=== PATIENT | female | born 1970 | race American Indian/Alaskan Native ===

== ENCOUNTER 2017-05-04 16:29 | Emergency (ER) | payer MEDICAID ==
[2017-05-04 17:41] VITALS: BP 153/89
[2017-05-04 19:11] LABS: Basophils % (Auto) 0.3 % (0.0-1.8); Eosinophils % (Auto) 0.5 % (0.0-4.3); Hematocrit 43.5 % (30.3-42.9); Hemoglobin 14.2 gm/dl (10.1-14.3); Mean Corpuscular HGB Conc 33 % (30-34); Mean Corpuscular Hemoglobin 31 pg (28-32); Mean Corpuscular Volume 94 fl (79-97); Red Blood Count 4.63 M/mm3 (3.65-5.03); Red Cell Distribution Width 14.4 % (13.2-15.2); White Blood Count 6.3 K/mm3 (4.5-11.0)
[2017-05-04 19:14] LABS: Platelet Count 160 K/mm3 (140-440)
[2017-05-04 19:57] LABS: Bilirubin,Urine NEG (Negative); Blood,Urine MOD (Negative); Ketones,Urine NEG (Negative); Leukocyte Esterase,Urine NEG (Negative); Mucus,Urine 2+ /HPF; Nitrite,Urine NEG (Negative); Protein,Urine <15 mg/dL mg/dL (Negative); Urobilinogen,Urine < 2.0 mg/dL (<2.0)
== END 2017-05-04 22:30 | disposition left against medical advice (07) ==
LOC: ED 16:29
DX: M54.5 Low back pain (principal); Z53.21 Procedure and treatment not carried out due to patient leaving prior to being seen by health care provider
CPT/HCPCS: 36415; 81001; 81025; 85025

== ENCOUNTER 2020-03-01 13:26 | Emergency (ER) | payer MEDICARE ==
[2020-03-01] MEDS ORDERED: HYOSCYAMINE SUBL 0.125 MG TAB SL ONE (14:33)
[2020-03-01] MEDS ORDERED: diphenhydrAMINE 50 MG/ML VIAL IV ONE (14:33)
[2020-03-01] MEDS ORDERED: ALUM-MAG HYDROXIDE-SIMETHICONE 200-200-20MG/5ML ORAL LIQD 30 ML PO ONE (14:33)
[2020-03-01] MEDS ORDERED: LIDOCAINE VISCOUS 2% 15 ML ORAL LIQD PO ONE (14:33)
[2020-03-01] MEDS ORDERED: METOCLOPRAMIDE 10 MG/2 ML INJ IV ONE (14:33)
[2020-03-01] MEDS ORDERED: SODIUM CHLORIDE 0.9% 1000 ML 1,000 ML IV ONE (14:33)
[2020-03-01 15:24] LABS: Bilirubin,Urine NEG (Negative); Blood,Urine SM (Negative); Color,Urine Yellow (Yellow); Mucus,Urine FEW /HPF; Protein,Urine <15 mg/dL mg/dL (Negative); Urobilinogen,Urine < 2.0 mg/dL (<2.0); WBC,Urine < 1.0 /HPF (0.0-6.0)
[2020-03-01 15:36] LABS: Basophils # (Auto) 0.1 K/mm3 (0.0-0.1); Basophils % (Auto) 1.8 % (0.0-1.8); Eosinophils % (Auto) 0.8 % (0.0-4.3); Hematocrit 38.3 % (30.3-42.9); Hemoglobin 12.9 gm/dl (10.1-14.3); Lymphocytes # (Auto) 1.2 K/mm3 (1.2-5.4); Lymphocytes % (Auto) 34.2 % (13.4-35.0); Mean Corpuscular HGB Conc 34 % (30-34); Mean Corpuscular Volume 93 fl (79-97); Monocytes # (Auto) 0.4 K/mm3 (0.0-0.8); Monocytes % (Auto) 11.4 % (0.0-7.3); Platelet Count 165 K/mm3 (140-440); Red Cell Distribution Width 13.5 % (13.2-15.2)
[2020-03-01 15:57] LABS: Alanine Aminotransferase 13 units/L (7-56); Albumin 4.1 g/dL (3.9-5); BUN/Creatinine Ratio 28; Blood Urea Nitrogen 17 mg/dL (7-17); Calcium 9.7 mg/dL (8.4-10.2); Hemolysis Index 64
--- NOTE | 2020-03-01 16:15 | Emergency Department Report ---
ED General Adult HPI - General Chief complaint: Nausea/Vomiting/Diarrhea Stated complaint: BACK PAIN/V/N/HEADACHE/DIARRHEA Time Seen by Provider: 03/01/20 14:23 Source: patient Mode of arrival: Ambulatory Limitations: No Limitations - History of Present Illness Initial comments: Patient is a 50-year-old female presents emergency room with complaints of lower back pain that began a week ago. She states that she is also been having nausea, vomiting, diarrhea over the last 2 weeks. She states that she has a couple episodes of each a day. She states that she also has generalized weakness and fatigue. she states she has been having acid reflux, indigestion, and increased burping. She denies any fever, cough, abdominal pain, shortness of breath, chest pain, dysuria, vaginal discharge or irritation, hematochezia, hematemesis, melena, pus in the stool. Patient reports that she had a UTI a week ago and was placed on Keflex and those symptoms have improved. She has a past medical history of HIV and states that her CD4 count is 314, anemia, hyp ertension, asthma. She states that she does drink alcohol a couple times a week and does smoke. - Related Data Home Medications Medication Instructions Recorded Confirmed Last Taken Atazanavir Sulfate [Reyataz] 300 mg PO DAILY 05/11/14 12/13/15 12/13/15 300 MG Emtricitabin/Tenofovir [TRUVADA 200 mg PO QDAY 05/11/14 12/13/15 12/13/15 200-300 mg] 200 MG Ritonavir [Norvir] 100 mg PO DAILY 05/11/14 12/13/15 12/13/15 100 MG Previous Rx's Medication Instructions Recorded Last Taken Type ARIPiprazole [Abilify TAB] 15 mg PO QHS #30 tablet 05/17/14 12/13/15 Rx 15 MG Benztropine [Cogentin] 1 mg PO QHS #30 tablet 05/17/14 12/13/15 Rx 1 MG [place] Carbonate [Eskalith] 450 mg PO Q12HR #180 capsule 05/17/14 12/13/15 Rx 450 MG Mirtazapine [Remeron 15mg TAB] 15 mg PO QHS #30 tablet 05/17/14 12/13/15 Rx 15 MG Ciprofloxacin HCl [Ciprofloxacin 500 mg PO BID #14 tablet 12/13/15 Unknown Rx TAB] traMADoL [Ultram] 50 mg PO Q6HR PRN #14 tablet 12/13/15 Unknown Rx Ibuprofen [Motrin 800 MG tab] 800 mg PO Q8HR PRN #20 tablet 01/09/20 Unknown Rx cephALEXin [Keflex] 500 mg PO Q6HR #40 capsule 01/09/20 Unknown Rx Acetaminophen [Tylenol] 650 mg PO Q8HR PRN #14 capsule 03/01/20 Unknown Rx Famotidine [Pepcid] 40 mg PO QHS #30 tablet 03/01/20 Unknown Rx Ondansetron [Zofran Odt] 4 mg PO Q8HR PRN #10 tab.rapdis 03/01/20 Unknown Rx Sucralfate [Carafate] 1 gm PO ACHS 7 Days #21 tablet 03/01/20 Unknown Rx methOCARBAMOL [Robaxin TAB] 500 mg PO BID PRN #12 tab 03/01/20 Unknown Rx Allergies Allergy/AdvReac Type Severity Reaction Status Date / Time Sulfa (Sulfonamide Allergy Unknown Unknown Verified 05/10/14 19:14 Antibiotics) ED Review of Systems ROS: Stated complaint: BACK PAIN/V/N/HEADACHE/DIARRHEA Other details as noted in HPI Comment: All other systems reviewed and negative ED Past Medical Hx - Past Medical History Previous Medical History?: Yes Hx Congestive Heart Failure: No Hx Diabetes: No Hx Psychiatric Treatment: Yes Hx Asthma: Yes Hx COPD: No Hx HIV: Yes Additional medical history: Bipolar - Surgical History Past Surgical History?: Yes Hx Appendectomy: Yes (1997) Additional Surgical History: 1997 appendix. hyst - Social History Smoking Status: Never Smoker Substance Use Type: Alcohol - Medications Home Medications: Home Medications Medication Instructions Recorded Confirmed Last Taken Type Atazanavir Sulfate [Reyataz] 300 mg PO DAILY 05/11/14 12/13/15 12/13/15 History 300 MG Emtricitabin/Tenofovir [TRUVADA 200 mg PO QDAY 05/11/14 12/13/15 12/13/15 History 200-300 mg] 200 MG Ritonavir [Norvir] 100 mg PO DAILY 05/11/14 12/13/15 12/13/15 History 100 MG ARIPiprazole [Abilify TAB] 15 mg PO QHS #30 tablet 05/17/14 12/13/15 12/13/15 Rx 15 MG Benztropine [Cogentin] 1 mg PO QHS #30 tablet 05/17/14 12/13/15 12/13/15 Rx 1 MG [place] Carbonate [Eskalith] 450 mg PO Q12HR #180 capsule 05/17/14 12/13/15 12/13/15 Rx 450 MG Mirtazapine [Remeron 15mg TAB] 15 mg PO QHS #30 tablet 05/17/14 12/13/15 12/13/15 Rx 15 MG Ciprofloxacin HCl [Ciprofloxacin 500 mg PO BID #14 tablet 12/13/15 Unknown Rx TAB] traMADoL [Ultram] 50 mg PO Q6HR PRN #14 tablet 12/13/15 Unknown Rx Ibuprofen [Motrin 800 MG tab] 800 mg PO Q8HR PRN #20 tablet 01/09/20 Unknown Rx cephALEXin [Keflex] 500 mg PO Q6HR #40 capsule 01/09/20 Unknown Rx Acetaminophen [Tylenol] 650 mg PO Q8HR PRN #14 capsule 03/01/20 Unknown Rx Famotidine [Pepcid] 40 mg PO QHS #30 tablet 03/01/20 Unknown Rx Ondansetron [Zofran Odt] 4 mg PO Q8HR PRN #10 tab.rapdis 03/01/20 Unknown Rx Sucralfate [Carafate] 1 gm PO ACHS 7 Days #21 tablet 03/01/20 Unknown Rx methOCARBAMOL [Robaxin TAB] 500 mg PO BID PRN #12 tab 03/01/20 Unknown Rx ED Physical Exam - General Limitations: No Limitations General appearance: alert, in no apparent distress - Head Head exam: Present: atraumatic, normocephalic - Eye Eye exam: Present: normal appearance - ENT ENT exam: Present: mucous membranes moist - Respiratory Respiratory exam: Present: normal lung sounds bilaterally. Absent: respiratory distress, wheezes, rales, rhonchi, stridor, chest wall tenderness, accessory muscle use, decreased breath sounds, prolonged expiratory - Cardiovascular Cardiovascular Exam: Present: regular rate, normal rhythm, normal heart sounds. Absent: systolic murmur, diastolic murmur, rubs, gallop - GI/Abdominal GI/Abdominal exam: Present: soft, normal bowel sounds. Absent: distended, tenderness, guarding, rebound, rigid - Neurological Exam Neurological exam: Present: alert, oriented X3 - Psychiatric Psychiatric exam: Present: normal affect, normal mood - Skin Skin exam: Present: warm, dry, intact ED Course Vital Signs 03/01/20 03/01/20 13:43 17:50 Temperature 99.2 F 99.5 F Pulse Rate 65 80 Respiratory 16 20 Rate Blood Pressure 133/83 Blood Pressure 104/61 [Right] O2 Sat by Pulse 100 100 Oximetry ED Medical Decision Making - Lab Data Result diagrams: 03/01/20 14:52 03/01/20 14:52 Labs 03/01/20 03/01/20 03/01/20 14:52 14:52 15:00 WBC 3.5 L RBC 4.10 Hgb 12.9 Hct 38.3 MCV 93 MCH 31 MCHC 34 RDW 13.5 Plt Count 165 Lymph % (Auto) 34.2 Wirt % (Auto) 11.4 H Eos % (Auto) 0.8 Baso % (Auto) 1.8 Lymph # 1.2 Wirt # 0.4 Eos # 0.0 Baso # 0.1 Seg Neutrophils % 51.8 Seg Neutrophils # 1.8 Sodium 139 Potassium 4.8 Chloride 103.1 Carbon Dioxide 25 Anion Gap 16 BUN 17 Creatinine 0.6 Estimated GFR > 60 BUN/Creatinine Ratio 28 Glucose 81 Calcium 9.7 Total Bilirubin < 0.20 AST 31 ALT 13 Alkaline Phosphatase 54 Total Protein 7.9 Albumin 4.1 Albumin/Globulin Ratio 1.1 Lipase 45 Urine Color Yellow Urine Turbidity Clear Urine pH 6.0 Ur Specific [place] 1.018 Urine Protein <15 mg/dl Urine Glucose (UA) Neg Urine Ketones Neg Urine Blood Sm Urine Nitrite Neg Urine Bilirubin Neg Urine Urobilinogen < 2.0 Ur Leukocyte Esterase Neg Urine WBC (Auto) < 1.0 Urine RBC (Auto) 8.0 U Epithel Cells (Auto) 4.0 Urine Mucus Few Vital Signs 03/01/20 03/01/20 13:43 17:50 Temperature 99.2 F 99.5 F Pulse Rate 65 80 Respiratory 16 20 Rate Blood Pressure 133/83 Blood Pressure 104/61 [Right] O2 Sat by Pulse 100 100 Oximetry - Medical Decision Making Patient is a 50-year-old female presents emergency room with complaints of lower back pain that began a week ago. She states that she is also been having nausea, vomiting, diarrhea over the last 2 weeks. She states that she has a couple episodes of each a day. She states that she also has generalized weakness and fatigue. she states she has been having acid reflux, indigestion, and increased burping. She denies any fever, cough, abdominal pain, shortness of breath, chest pain, dysuria, vaginal discharge or irritation, hematochezia, hematemesis, melena, pus in the stool. Patient reports that she had a UTI a week ago and was placed on Keflex and those symptoms have improved. She has a past medical history of HIV and states that her CD4 count is 314, anemia, hypertension, asthma. She states that she does drink alcohol a couple times a week and does smoke. Vitals are normal. Labs are stable. UA without evidence of UTI or dehydration. Patient given medications and her symptoms improved and she was feeling much better ready to go home. Patient was able to tolerate p.o. intake without any difficulty. Patient had no further episodes of vomiting or diarrhea while in the emergency department. Patient states that her acid reflux also completely resolved. Patient given prescription for Tylenol, Robaxin, Carafate, Pepcid, Zofran. Advised patient Please take medication as prescribed. Please increase your water intake. Please follow the diet for acid reflux. Do not drive or operate machinery while taking muscle relaxer due to potential for drowsiness. Use ice pack, heating pad, rest, Epson salt bath. Follow-up with a primary care doctor. Follow-up with your infectious disease doctor. Follow-up with a GI doctor. Return to emergency room for any new or worsening symptoms. - Differential Diagnosis UTI, pyelonephritis, gastroenteritis, viral syndrome, colitis, gastritis Critical care attestation.: If time is entered above; I have spent that time in minutes in the direct care of this critically ill patient, excluding procedure time. ED Disposition Clinical Impression: Nausea vomiting and diarrhea, Generalized weakness Lower back pain Qualifiers: Chronicity: acute Back pain laterality: bilateral Sciatica presence: without sciatica Qualified Code(s): M54.5 - Low back pain Fatigue Qualifiers: Fatigue type: unspecified Qualified Code(s): R53.83 - Other fatigue GERD (gastroesophageal reflux disease) Qualifiers: Esophagitis presence: without esophagitis Qualified Code(s): K21.9 - Gastro- esophageal reflux disease without esophagitis Disposition: DC-01 TO HOME OR SELFCARE Is pt being admited?: No Does the pt Need Aspirin: No Condition: Stable Instructions: Diet for Ulcers and Gastritis (ED), Gastroenteritis (ED), Low Back Strain (ED), Gastroesophageal Reflux Disease (ED) Additional Instructions: Please take medication as prescribed. Please increase your water intake. Please follow the diet for acid reflux. Do not drive or operate machinery while taking muscle relaxer due to potential for drowsiness. Use ice pack, heating pad, rest, Epson salt bath. Follow-up with a primary care doctor. Follow-up wi your infectious disease doctor. Follow-up with a GI doctor. Return to emergency room for any new or worsening symptoms. Prescriptions: Famotidine [Pepcid] 40 mg PO QHS #30 tablet Sucralfate [Carafate] 1 gm PO ACHS 7 Days #21 tablet methOCARBAMOL [Robaxin TAB] 500 mg PO BID PRN #12 tab PRN Reason: pain Acetaminophen [Tylenol] 650 mg PO Q8HR PRN #14 capsule PRN Reason: pain Ondansetron [Zofran Odt] 4 mg PO Q8HR PRN #10 tab.rapdis PRN Reason: Nausea And Vomiting Referrals: CHRISTELLE PALMER MD [Primary Care Provider] - 2-3 Days your, infectious disease doctor [Other] - 2-3 Days [facility] [Provider Group] - 2-3 Days Time of Disposition: 16:26 Print Language: WELSH
[2020-03-01] MEDS ORDERED: CYCLOBENZAPRINE 10 MG TAB PO ONE (16:24)
[2020-03-01] MEDS ORDERED: KETOROLAC 30 MG/1 ML INJ IV ONE (16:24)
[2020-03-01 17:52] VITALS: BP 104/61
== END 2020-03-01 17:55 | disposition home or self-care (01) ==
LOC: ED 13:26
DX: K21.9 Gastro-esophageal reflux disease without esophagitis (principal); R11.2 Nausea with vomiting, unspecified; M54.5 Low back pain; J45.909 Unspecified asthma, uncomplicated; Z79.899 Other long term (current) drug therapy; Z88.2 Allergy status to sulfonamides
CPT/HCPCS: 36415; 80053; 81001; 83690; 85025; 96361; 96374; 96375; 99283; J1200; J1885; J2765; J7030

== ENCOUNTER 2020-04-02 10:14 | Emergency (ER) | payer MEDICARE ==
[2020-04-02 10:52] VITALS: BP 151/95
--- NOTE | 2020-04-02 10:57 | Emergency Department Report ---
Blank Doc - Documentation Documentation: 50-year-old female that presents with flank pain. Has been taking Keflex with no relief and symptoms worsening. This initial assessment/diagnostic orders/clinical plan/treatment(s) is/are subject to change based on patient's health status, clinical progression and re-assessment by fellow clinical providers in the ED. Further treatment and workup at subsequent clinical providers discretion. Patient/guardians urged not to elope from the ED as their condition may be serious if not clinically assessed and managed. Initial orders include: 1- Patient sent to [facility] for further evaluation and treatment 2- UA
[2020-04-02 11:18] LABS: Bacteria,Urine 1+ /HPF (Negative); Bilirubin,Urine NEG (Negative); Blood,Urine MOD (Negative); Color,Urine Yellow (Yellow); Hyaline Casts,Urine 1 /LPF; Mucus,Urine 1+ /HPF; Protein,Urine <15 mg/dL mg/dL (Negative); Urobilinogen,Urine < 2.0 mg/dL (<2.0)
--- NOTE | 2020-04-02 12:16 | Cat Scan Report ---
CT ABDOMEN AND PELVIS WITHOUT CONTRAST INDICATION: flank pain. TECHNIQUE: Axial CT images were obtained through the abdomen and pelvis without IV contrast. All CT scans at [facility] are performed using CT dose reduction for ALARA by means of automated exposure control. COMPARISON: 01/09/2020 FINDINGS: LOWER CHEST: No significant abnormality. LIVER: No significant abnormality. GALLBLADDER: No significant abnormality. BILE DUCTS: No significant abnormality. PANCREAS: No significant abnormality. SPLEEN: No significant abnormality. ADRENALS: No significant abnormality. RIGHT KIDNEY and URETER: No significant abnormality. LEFT KIDNEY and URETER: No significant abnormality. STOMACH and SMALL BOWEL: No significant abnormality. COLON: No significant abnormality. APPENDIX: Not visualized likely surgically absent PERITONEUM: No free fluid. No free air. No fluid collection. LYMPH NODES: No significant adenopathy. AORTA and ARTERIES: No significant abnormality. IVC and VEINS: No significant abnormality. URINARY BLADDER: No significant abnormality. REPRODUCTIVE ORGANS: Surgically absent. ADDITIONAL FINDINGS: None. SKELETAL SYSTEM: No significant abnormality. IMPRESSION: 1. No significant abnormality. 2. No urinary tract calculi or hydronephrosis. Signer Name: Sanjay Sanders MD Signed: 04/02/2020 12:12 PM Workstation Name: [id number]
[2020-04-02] MEDS ORDERED: KETOROLAC 60 MG/2 ML INJ IM ONE (12:36)
[2020-04-02] MEDS ORDERED: CYCLOBENZAPRINE 10 MG TAB PO ONE (12:36)
--- NOTE | 2020-04-02 12:41 | Emergency Department Report ---
ED Back Pain/Injury HPI - General Chief Complaint: Back Pain/Injury Stated Complaint: LOWER BACK PAIN Time Seen by Provider: 04/02/20 10:55 Source: patient Limitations: No Limitations - History of Present Illness Initial Comments: Patient is a 50-year-old female presents emergency room with complaints of left lower back pain that began a couple of days ago. She has associated nausea. She denies any fever, hematochezia, melena, hematemesis, urinary symptoms, dysuria. She denies any fall or injury. She denies any numbness, weakness, bowel or bladder incontinence. Patient states that she had a UTI couple weeks ago and completed a course of Keflex. She states that she wanted to make sure she did not have a kidney infection as she has had to be admitted for one in the past. She states she has a past medical history of HIV and is on her antivirals and states her CD4 count is 601, she also has a history of hypertension and asthma. - Related Data Home Medications Medication Instructions Recorded Confirmed Last Taken Atazanavir Sulfate [Reyataz] 300 mg PO DAILY 05/11/14 12/13/15 12/13/15 300 MG Emtricitabin/Tenofovir [TRUVADA 200 mg PO QDAY 05/11/14 12/13/15 12/13/15 200-300 mg] 200 MG Ritonavir [Norvir] 100 mg PO DAILY 05/11/14 12/13/15 12/13/15 100 MG Previous Rx's Medication Instructions Recorded Last Taken Type ARIPiprazole [Abilify TAB] 15 mg PO QHS #30 tablet 05/17/14 12/13/15 Rx 15 MG Benztropine [Cogentin] 1 mg PO QHS #30 tablet 05/17/14 12/13/15 Rx 1 MG [place] Carbonate [Eskalith] 450 mg PO Q12HR #180 capsule 05/17/14 12/13/15 Rx 450 MG Mirtazapine [Remeron 15mg TAB] 15 mg PO QHS #30 tablet 05/17/14 12/13/15 Rx 15 MG Ciprofloxacin HCl [Ciprofloxacin 500 mg PO BID #14 tablet 12/13/15 Unknown Rx TAB] traMADoL [Ultram] 50 mg PO Q6HR PRN #14 tablet 12/13/15 Unknown Rx Ibuprofen [Motrin 800 MG tab] 800 mg PO Q8HR PRN #20 tablet 01/09/20 Unknown Rx cephALEXin [Keflex] 500 mg PO Q6HR #40 capsule 01/09/20 Unknown Rx Acetaminophen [Tylenol] 650 mg PO Q8HR PRN #14 capsule 03/01/20 Unknown Rx Famotidine [Pepcid] 40 mg PO QHS #30 tablet 03/01/20 Unknown Rx Ondansetron [Zofran Odt] 4 mg PO Q8HR PRN #10 tab.rapdis 03/01/20 Unknown Rx Sucralfate [Carafate] 1 gm PO ACHS 7 Days #21 tablet 03/01/20 Unknown Rx methOCARBAMOL [Robaxin TAB] 500 mg PO BID PRN #12 tab 03/01/20 Unknown Rx Menthol/Camphor [[place] 1 applic TP BID #18 oint...g. 04/02/20 Unknown Rx Ointment] Naproxen [EC-Naprosyn] 500 mg PO BID PRN #14 tablet.dr 04/02/20 Unknown Rx methOCARBAMOL [Robaxin TAB] 500 mg PO BID PRN #14 tab 04/02/20 Unknown Rx Allergies Allergy/AdvReac Type Severity Reaction Status Date / Time Sulfa (Sulfonamide Allergy Unknown Unknown Verified 05/10/14 19:14 Antibiotics) ED Review of Systems ROS: Stated complaint: LOWER BACK PAIN Other details as noted in HPI Comment: All other systems reviewed and negative ED Past Medical Hx - Past Medical History Previous Medical History?: Yes Hx Congestive Heart Failure: No Hx Diabetes: No Hx Psychiatric Treatment: Yes Hx Asthma: Yes Hx COPD: No Hx HIV: Yes Additional medical history: Bipolar - Surgical History Past Surgical History?: Yes Hx Appendectomy: Yes (1997) Additional Surgical History: 1997 appendix. hyst - Social History Smoking Status: Never Smoker Substance Use Type: Alcohol - Medications Home Medications: Home Medications Medication Instructions Recorded Confirmed Last Taken Type Atazanavir Sulfate [Reyataz] 300 mg PO DAILY 05/11/14 12/13/15 12/13/15 History 300 MG Emtricitabin/Tenofovir [TRUVADA 200 mg PO QDAY 05/11/14 12/13/15 12/13/15 History 200-300 mg] 200 MG Ritonavir [Norvir] 100 mg PO DAILY 05/11/14 12/13/15 12/13/15 History 100 MG ARIPiprazole [Abilify TAB] 15 mg PO QHS #30 tablet 05/17/14 12/13/15 12/13/15 Rx 15 MG Benztropine [Cogentin] 1 mg PO QHS #30 tablet 05/17/14 12/13/15 12/13/15 Rx 1 MG [place] Carbonate [Eskalith] 450 mg PO Q12HR #180 capsule 05/17/14 12/13/15 12/13/15 Rx 450 MG Mirtazapine [Remeron 15mg TAB] 15 mg PO QHS #30 tablet 05/17/14 12/13/15 12/13/15 Rx 15 MG Ciprofloxacin HCl [Ciprofloxacin 500 mg PO BID #14 tablet 12/13/15 Unknown Rx TAB] traMADoL [Ultram] 50 mg PO Q6HR PRN #14 tablet 12/13/15 Unknown Rx Ibuprofen [Motrin 800 MG tab] 800 mg PO Q8HR PRN #20 tablet 01/09/20 Unknown Rx cephALEXin [Keflex] 500 mg PO Q6HR #40 capsule 01/09/20 Unknown Rx Acetaminophen [Tylenol] 650 mg PO Q8HR PRN #14 capsule 03/01/20 Unknown Rx Famotidine [Pepcid] 40 mg PO QHS #30 tablet 03/01/20 Unknown Rx Ondansetron [Zofran Odt] 4 mg PO Q8HR PRN #10 tab.rapdis 03/01/20 Unknown Rx Sucralfate [Carafate] 1 gm PO ACHS 7 Days #21 tablet 03/01/20 Unknown Rx methOCARBAMOL [Robaxin TAB] 500 mg PO BID PRN #12 tab 03/01/20 Unknown Rx Menthol/Camphor [[place] 1 applic TP BID #18 oint...g. 04/02/20 Unknown Rx Ointment] Naproxen [EC-Naprosyn] 500 mg PO BID PRN #14 tablet. 04/02/20 Unknown Rx methOCARBAMOL [Robaxin TAB] 500 mg PO BID PRN #14 tab 04/02/20 Unknown Rx ED Physical Exam - General Limitations: No Limitations General appearance: alert, in no apparent distress - Head Head exam: Present: atraumatic, normocephalic - Eye Eye exam: Present: normal appearance - ENT ENT exam: Present: mucous membranes moist - Respiratory Respiratory exam: Present: normal lung sounds bilaterally. Absent: respiratory distress, wheezes, rales, rhonchi, stridor, chest wall tenderness, accessory muscle use, decreased breath sounds, prolonged expiratory - Cardiovascular Cardiovascular Exam: Present: regular rate, normal rhythm, normal heart sounds. Absent: systolic murmur, diastolic murmur, rubs, gallop - GI/Abdominal GI/Abdominal exam: Present: soft, normal bowel sounds. Absent: distended, tenderness, guarding, rebound, rigid - Back Exam Back exam: Present: normal inspection, full ROM, paraspinal tenderness (left lumbar paraspinal muscular ttp, no midline C-spine, T-spine or L-spine ttp, no step offs, no deformities). Absent: CVA tenderness (R), CVA tenderness (L), vertebral tenderness - Neurological Exam Neurological exam: Present: alert, oriented X3, CN II-XII intact, normal gait. Absent: motor sensory deficit - Psychiatric Psychiatric exam: Present: normal affect, normal mood - Skin Skin exam: Present: warm, dry, intact ED Course Vital Signs 04/02/20 04/02/20 04/02/20 10:51 13:01 13:30 Temperature 98.2 F Pulse Rate 75 Respiratory 16 18 18 Rate Blood Pressure 151/95 [Right] O2 Sat by Pulse 97 Oximetry ED Medical Decision Making - Lab Data Lab Results 04/02/20 Range/Units Unknown Urine Color Yellow (Yellow) Urine Turbidity Clear (Clear) Urine pH 5.0 (5.0-7.0) Ur Specific [place] 1.017 (1.003-1.030) Urine Protein <15 mg/dl (Negative) mg/dL Urine Glucose (UA) Neg (Negative) mg/dL Urine Ketones Neg (Negative) mg/dL Urine Blood Mod (Negative) Urine Nitrite Neg (Negative) Urine Bilirubin Neg (Negative) Urine Urobilinogen < 2.0 (<2.0) mg/dL Ur Leukocyte Esterase Neg (Negative) Urine WBC (Auto) 1.0 (0.0-6.0) /HPF Urine RBC (Auto) 5.0 (0.0-6.0) /HPF U Epithel Cells (Auto) 4.0 (0-13.0) /HPF Urine Bacteria (Auto) 1+ (Negative) /HPF Hyaline Casts 1 /LPF Urine Mucus 1+ /HPF - Radiology Data Radiology results: report reviewed CT ABDOMEN AND PELVIS WITHOUT CONTRAST INDICATION: flank pain. TECHNIQUE: Axial CT images were obtained through the abdomen and pelvis without IV contrast. All CT scans at this location are performed using CT dose reduction for ALARA by means of automated exposure control. COMPARISON: 01/09/2020 FINDINGS: LOWER CHEST: No significant abnormality. LIVER: No significant abnormality. GALLBLADDER: No significant abnormality. BILE DUCTS: No significant abnormality. PANCREAS: No significant abnormality. SPLEEN: No significant abnormality. ADRENALS: No significant abnormality. RIGHT KIDNEY and URETER: No significant abnormality. LEFT KIDNEY and URETER: No significant abnormality. STOMACH and SMALL BOWEL: No significant abnormality. COLON: No significant abnormality. APPENDIX: Not visualized likely surgically absent PERITONEUM: No free fluid. No free air. No fluid collection. LYMPH NODES: No significant adenopathy. AORTA and ARTERIES: No significant abnormality. IVC and VEINS: No significant abnormality. URINARY BLADDER: No significant abnormality. REPRODUCTIVE ORGANS: Surgically absent. ADDITIONAL FINDINGS: None. SKELETAL SYSTEM: No significant abnormality. IMPRESSION: 1. No significant abnormality. 2. No urinary tract calculi or hydronephrosis. Signer Name: Sanjay Sanders MD Signed: 04/02/2020 12:12 PM Workstation Name: [id number] Transcribed By: TL Dictated By: Sanjay Sanders MD Electronically Authenticated By: Sanjay Sanders MD Signed Date/Time: 04/02/20 1212 DD/ 1208 TD/TT: - Medical Decision Making Patient is a 50-year-old female presents emergency room with complaints of left lower back pain that began a couple of days ago. She has associated nausea. She denies any fever, hematochezia, melena, hematemesis, urinary symptoms, dysuria. She denies any fall or injury. She denies any numbness, weakness, bowel or bladder incontinence. Patient states that she had a UTI couple weeks ago and completed a course of Keflex. She states that she wanted to make sure she did not have a kidney infection as she has had to be admitted for one in the past. She states she has a past medical history of HIV and is on her antivirals and states her CD4 count is 601, she also has a history of hypertension and asthma. VSS. on exam: left lumbar paraspinal muscular ttp, no midline C-spine, T-spine or L-spine ttp, no step offs, no deformities, no focal neuro deficits. UA is within normal limits and without signs of infection. CT abd pelvis without contrast ordered prior to my examination and shows: 1. No significant abnormality. 2. No urinary tract calculi or hydronephrosis. Symptoms appear most consistent with lumbar strain. Patient given Toradol IM and Flexeril in the emergency department as she did not drive and symptoms improved. Patient has no red flag warning signs of back pain, no trauma, no unexplained weight loss, no neuro deficits, no fever, no IV drug use, no steroid use, no history of cancer. Patient given prescription for naproxen, Robaxin, [place] ointment. Advised patient to please use medication as prescribed. Do not drive or operate heavy machinery or work while taking muscle relaxer (robaxin) due to potential for drowsiness. May use ice pack, heating pad, rest, epsom salt bath. Follow-up with a primary care doctor. Follow-up with orthopedic doctor. Return to emergency room for any new or worsening symptoms. - Differential Diagnosis UTI, nephrolithiasis, pyelonephritis, muscle strain, DDD, bulging disc Critical care attestation.: If time is entered above; I have spent that time in minutes in the direct care of this critically ill patient, excluding procedure time. ED Disposition Clinical Impression: Low back pain Qualifiers: Chronicity: acute Back pain laterality: left Sciatica presence: without sciatica Qualified Code(s): M54.5 - Low back pain Disposition: - TO HOME OR SELFCARE Is pt being admited?: No Does the pt Need Aspirin: No Condition: Stable Instructions: Low Back Strain (ED), Back Pain (ED) Additional Instructions: please use medication as prescribed. Do not drive or operate heavy machinery or work while taking muscle relaxer (robaxin) due to potential for drowsiness. May use ice pack, heating pad, rest, epsom salt bath. Follow-up with a primary care doctor. Follow-up with orthopedic doctor. Return to emergency room for any new or worsening symptoms. Prescriptions: Naproxen [EC-Naprosyn] 500 mg PO BID PRN #14 tablet.dr GRANADOS Reason: pain methOCARBAMOL [Robaxin TAB] 500 mg PO BID PRN #14 tab PRN Reason: pain Menthol/Camphor [[place] Ointment] 1 applic TP BID #18 oint...g. Referrals: RADHA RÍOS MD [Staff Physician] - 2-[address] [facility] [Provider Group] - 2-3 Days DANNY RODRIGUEZ MD [Staff Physician] - 2-3 Days [facility] [Provider Group] - 2-3 Days Forms: Work/School Release Form(ED) Time of Disposition: 12:42 Print Language: CAMEROONIAN
== END 2020-04-02 13:31 | disposition home or self-care (01) ==
LOC: ED 10:14
DX: M54.5 Low back pain (principal); F31.9 Bipolar disorder, unspecified; J45.909 Unspecified asthma, uncomplicated; Z21 Asymptomatic human immunodeficiency virus [HIV] infection status; Z90.49 Acquired absence of other specified parts of digestive tract; Z79.899 Other long term (current) drug therapy; Z88.2 Allergy status to sulfonamides; Z98.890 Other specified postprocedural states
CPT/HCPCS: 74176; 81001; 96372; 99284; J1885

== ENCOUNTER 2020-08-16 19:31 | Emergency (ER) | payer MEDICARE | END 2020-08-16 21:32 | disposition left against medical advice (07) | LOC: ED 19:31 | DX: R10.9 Unspecified abdominal pain (principal); Z53.21 Procedure and treatment not carried out due to patient leaving prior to being seen by health care provider ==

== ENCOUNTER 2021-12-03 16:17 | Emergency (ER) | payer MEDICARE ==
[2021-12-03] MEDS ORDERED: FAMOTIDINE 20 MG/2 ML INJ IV ONE (17:49)
[2021-12-03] MEDS ORDERED: ONDANSETRON 4 MG/2 ML INJ IV ONE (17:49)
[2021-12-03] MEDS ORDERED: SODIUM CHLORIDE 0.9% 1000 ML 1,000 ML IV ONE (17:50)
--- NOTE | 2021-12-03 18:03 | Emergency Department Report ---
History of Present Illness - General Chief Complaint: Overdose Stated Complaint: OD Time Seen by Provider: 12/03/21 17:00 Source: EMS Mode of arrival: Stretcher Limitations: No Limitations - History of Present Illness MD Complaint: intentional overdose -: Sudden Intent: suicide attempt How Overdose Was Discovered: called 911 Context: Intentional Overdose: relationship problems, work problems, recent loss Associated Symptoms: depression, nausea/vomiting Treatments Prior to Arrival: none - Related Data Home Medications Medication Instructions Recorded Confirmed Last Taken Atazanavir Sulfate [Reyataz] 300 mg PO DAILY 05/11/14 12/13/15 12/13/15 300 MG Emtricitabin/Tenofovir [TRUVADA 200 mg PO QDAY 05/11/14 12/13/15 12/13/15 200-300 mg] 200 MG Ritonavir [Norvir] 100 mg PO DAILY 05/11/14 12/13/15 12/13/15 100 MG Previous Rx's Medication Instructions Recorded Last Taken Type ARIPiprazole [Abilify TAB] 15 mg PO QHS #30 tablet 05/17/14 12/13/15 Rx 15 MG Benztropine [Cogentin] 1 mg PO QHS #30 tablet 05/17/14 12/13/15 Rx 1 MG [place] Carbonate [Eskalith] 450 mg PO Q12HR #180 capsule 05/17/14 12/13/15 Rx 450 MG Mirtazapine [Remeron 15mg TAB] 15 mg PO QHS #30 tablet 05/17/14 12/13/15 Rx 15 MG Ciprofloxacin HCl [Ciprofloxacin 500 mg PO BID #14 tablet 12/13/15 Unknown Rx TAB] traMADoL [Ultram] 50 mg PO Q6HR PRN #14 tablet 12/13/15 Unknown Rx Ibuprofen [Motrin 800 MG tab] 800 mg PO Q8HR PRN #20 tablet 01/09/20 Unknown Rx cephALEXin [Keflex] 500 mg PO Q6HR #40 capsule 01/09/20 Unknown Rx Acetaminophen [Tylenol] 650 mg PO Q8HR PRN #14 capsule 03/01/20 Unknown Rx Famotidine [Pepcid] 40 mg PO QHS #30 tablet 03/01/20 Unknown Rx Ondansetron [Zofran Odt] 4 mg PO Q8HR PRN #10 tab.rapdis 08/13/20 Unknown Rx Sucralfate [Carafate] 1 gm PO ACHS 7 Days #21 tablet 03/01/20 Unknown Rx methOCARBAMOL [Robaxin TAB] 500 mg PO BID PRN #12 tab 03/01/20 Unknown Rx Menthol/Camphor [[place] 1 applic TP BID #18 oint...g. 04/02/20 Unknown Rx Ointment] Naproxen [EC-Naprosyn] 500 mg PO BID PRN #14 tablet.dr 04/02/20 Unknown Rx methOCARBAMOL [Robaxin TAB] 500 mg PO BID PRN #14 tab 04/02/20 Unknown Rx Allergies Allergy/AdvReac Type Severity Reaction Status Date / Time Sulfa (Sulfonamide Allergy Unknown Unknown Verified 12/03/21 16:22 Antibiotics) ED Review of Systems ROS: Stated complaint: OD Other details as noted in HPI Comment: All other systems reviewed and negative Constitutional: no symptoms reported Eyes: as per HPI ENT: as per HPI Respiratory: no symptoms reported Cardiovascular: as per HPI Endocrine: no symptoms reported Gastrointestinal: as per HPI, nausea, vomiting. denies: abdominal pain, diarrhea, constipation, hematemesis, melena, hematochezia Genitourinary: as per HPI. denies: urgency, dysuria, frequency, hematuria, discharge, abnormal menses, dyspareunia, other Musculoskeletal: as per HPI. denies: back pain, joint swelling, arthralgia, myalgia Skin: as per HPI. denies: rash, lesions, change in color, change in hair/nails, pruritus Neurological: denies: headache, weakness, numbness, paresthesias, confusion, abnormal gait Psychiatric: anxiety, depression, auditory hallucinations, visual hallucinations, suicidal thoughts. denies: homicidal thoughts Hematological/Lymphatic: as per HPI. denies: easy bleeding, easy bruising, swollen glands ED Past Medical Hx - Past Medical History Hx Congestive Heart Failure: No Hx Diabetes: No Hx Psychiatric Treatment: Yes Hx Asthma: Yes Hx COPD: No Hx HIV: Yes Additional medical history: Bipolar - Surgical History Hx Appendectomy: Yes (1997) Additional Surgical History: 1997 appendix. hyst - Family History Family history: no significant - Social History Smoking Status: Never Smoker Substance Use Type: Alcohol, Marijuana - Medications Home Medications: Home Medications Medication Instructions Recorded Confirmed Last Taken Type Atazanavir Sulfate [Reyataz] 300 mg PO DAILY 05/11/14 12/13/15 12/13/15 History 300 MG Emtricitabin/Tenofovir [TRUVADA 200 mg PO QDAY 05/11/14 12/13/15 12/13/15 History 200-300 mg] 200 MG Ritonavir [Norvir] 100 mg PO DAILY 05/11/14 12/13/15 12/13/15 History 100 MG ARIPiprazole [Abilify TAB] 15 mg PO QHS #30 tablet 05/17/14 12/13/15 12/13/15 Rx 15 MG Benztropine [Cogentin] 1 mg PO QHS #30 tablet 05/17/14 12/13/15 12/13/15 Rx 1 MG [place] Carbonate [Eskalith] 450 mg PO Q12HR #180 capsule 05/17/14 12/13/15 12/13/15 Rx 450 MG Mirtazapine [Remeron 15mg TAB] 15 mg PO QHS #30 tablet 05/17/14 12/13/15 12/13/15 Rx 15 MG Ciprofloxacin HCl [Ciprofloxacin 500 mg PO BID #14 tablet 12/13/15 Unknown Rx TAB] traMADoL [Ultram] 50 mg PO Q6HR PRN #14 tablet 12/13/15 Unknown Rx Ibuprofen [Motrin 800 MG tab] 800 mg PO Q8HR PRN #20 tablet 01/09/20 Unknown Rx cephALEXin [Keflex] 500 mg PO Q6HR #40 capsule 01/09/20 Unknown Rx Acetaminophen [Tylenol] 650 mg PO Q8HR PRN #14 capsule 03/01/20 Unknown Rx Famotidine [Pepcid] 40 mg PO QHS #30 tablet 03/01/20 Unknown Rx Ondansetron [Zofran Odt] 4 mg PO Q8HR PRN #10 tab.rapdis 03/01/20 Unknown Rx Sucralfate [Carafate] 1 gm PO ACHS 7 Days #21 tablet 03/01/20 Unknown Rx methOCARBAMOL [Robaxin TAB] 500 mg PO BID PRN #12 tab 03/01/20 Unknown Rx Menthol/Camphor [[place] 1 applic TP BID #18 oint...g. 04/02/20 Unknown Rx Ointment] Naproxen [EC-Naprosyn] 500 mg PO BID PRN #14 tablet. 04/02/20 Unknown Rx methOCARBAMOL [Robaxin TAB] 500 mg PO BID PRN #14 tab 04/02/20 Unknown Rx ED Physical Exam - General Limitations: No Limitations General appearance: alert, appears intoxicated, anxious - Head Head exam: Present: atraumatic, normocephalic - Eye Eye exam: Present: normal appearance, PERRL, EOMI Pupils: Present: normal accommodation - ENT ENT exam: Present: normal exam, normal orophraynx, mucous membranes moist - Neck Neck exam: Present: normal inspection, full ROM. Absent: tenderness, meningismus, lymphadenopathy, thyromegaly - Respiratory Respiratory exam: Present: normal lung sounds bilaterally. Absent: respiratory distress, wheezes, rales, rhonchi, stridor, chest wall tenderness, accessory muscle use, decreased breath sounds, prolonged expiratory - Cardiovascular Cardiovascular Exam: Present: regular rate, normal rhythm, normal heart sounds - GI/Abdominal GI/Abdominal exam: Present: soft, normal bowel sounds. Absent: distended, tenderness, guarding, rebound, rigid, diminished bowel sounds, hyperactive bowel sounds, hypoactive bowel sounds, organomegaly, mass, bruit, pulsatile mass, hernia - Rectal Rectal exam: Present: deferred - External exam: Present: normal external exam - Extremities Exam Extremities exam: Present: normal inspection, full ROM, normal capillary refill. Absent: tenderness, pedal edema, joint swelling, calf tenderness - Back Exam Back exam: Present: normal inspection, full ROM. Absent: tenderness, CVA tenderness (R), CVA tenderness (L), muscle spasm, paraspinal tenderness, vertebral tenderness, rash noted - Neurological Exam Neurological exam: Present: alert, oriented X3, CN II-XII intact, motor sensory deficit, reflexes normal - Psychiatric Psychiatric exam: Present: depressed, agitated, anxious, suicidal ideation - Skin Skin exam: Present: dry, intact, rash. Absent: warm, normal color, cyanosis, diaphoretic, erythema, urticaria, vesicles, petechiae, pallor, abrasion, ecchymosis, other ED Course Vital Signs 12/03/21 12/03/21 12/03/21 16:19 16:28 16:51 Pulse Rate 73 Respiratory 18 Rate Blood Pressure Blood Pressure 140/90 [Left] O2 Sat by Pulse 96 99 Oximetry 12/03/21 12/03/21 12/03/21 17:00 17:16 17:30 Pulse Rate 64 62 63 Respiratory 14 16 15 Rate Blood Pressure 142/91 142/91 141/96 Blood Pressure 142/91 [Left] O2 Sat by Pulse 96 96 97 Oximetry 12/03/21 12/03/21 12/03/21 17:46 18:00 18:16 Pulse Rate 84 73 69 Respiratory 25 H 18 19 Rate Blood Pressure 141/96 128/69 128/69 Blood Pressure 141/96 [Left] O2 Sat by Pulse 97 97 94 Oximetry 12/03/21 12/03/21 12/03/21 18:30 18:46 19:00 Pulse Rate 77 84 77 Respiratory 12 18 9 L Rate Blood Pressure 146/91 146/91 146/91 Blood Pressure [Left] O2 Sat by Pulse 96 96 97 Oximetry 12/03/21 12/03/21 12/03/21 19:16 19:30 19:46 Pulse Rate 72 85 85 Respiratory 13 15 18 Rate Blood Pressure 132/78 131/77 131/77 Blood Pressure [Left] O2 Sat by Pulse 95 96 95 Oximetry 12/03/21 12/03/21 12/03/21 20:00 20:16 20:30 Pulse Rate 68 77 74 Respiratory 12 17 19 Rate Blood Pressure 139/77 139/77 139/77 Blood Pressure [Left] O2 Sat by Pulse 97 96 98 Oximetry 12/03/21 12/03/21 12/03/21 20:46 21:00 21:16 Pulse Rate 73 74 78 Respiratory 18 18 11 L Rate Blood Pressure 139/77 139/77 139/77 Blood Pressure [Left] O2 Sat by Pulse 96 97 97 Oximetry - Reevaluation(s) Reevaluation #1: 12/03/21 18:11 pt c/o nausea; Aox4, mentating well, she is tearful; reports continued SI; will continue to monitor Reevaluation #2: 12/03/21 21:58 pt is calm, cooperative; denies any abdominal pain, nausea/vomiting; pt reports continued active +SI ED Medical Decision Making - Lab Data Result diagrams: 12/03/21 20:42 12/03/21 19:52 - EKG Data -: EKG Interpreted by Or EKG shows normal: sinus rhythm Rate: tachycardia - EKG Data When compared to previous EKG there are: no significant change, previous EKG unavailable Interpretation: no acute changes - Radiology Data Radiology results: report reviewed - Medical Decision Making Patient is a 51-year-old with extensive past medical history was brought in by EMS after having personally called EMS due to suicide attempt. Vital signs stable. Patient endorses being actively suicidal here. She was observed for several hours. Serum labs reviewed. EKG and chest x-ray reviewed as well. She was given antiemetics via Zofran and given intravenous volume repletion via normal saline. Per my clinical assessment, the patient has been medically cleared. The patient's emergency department nurse Ivan, telephone [place] poison control. See patient's electronic health record for his documented discussion with poison control. Per their verbal report to him, no further emergent work-up is indicated at this time. Patient has been medically cleared for evaluation and further management by psychiatry [id number] has been placed. She will need acute inpatient psychiatric hospitalization. Critical care attestation.: If time is entered above; I have spent that time in minutes in the direct care of this critically ill patient, excluding procedure time. ED Disposition Clinical Impression: Suicide attempt, Overdose Disposition: [facility] Is pt being admited?: Yes Does the pt Need Aspirin: No Condition: Stable
--- NOTE | 2021-12-03 18:48 | XRay Report ---
CHEST 1 VIEW 12/03/2021 6:31 PM INDICATION / CLINICAL INFORMATION: weakness, vomiting. COMPARISON: None available FINDINGS: SUPPORT DEVICES: None. HEART / MEDIASTINUM: No significant abnormality. LUNGS / PLEURA: No significant pulmonary or pleural abnormality. No pneumothorax. ADDITIONAL FINDINGS: No significant additional findings. IMPRESSION: 1. No acute findings. Signer Name: Suraj Meadows MD Signed: 12/03/2021 6:44 PM Workstation Name: [id number]
[2021-12-03 20:37] LABS: Alanine Aminotransferase 11 units/L (7-56); Albumin 4.1 g/dL (3.9-5); Blood Urea Nitrogen 12 mg/dL (7-17); Calcium 8.3 mg/dL (8.4-10.2); Hemolysis Index 5
[2021-12-03 20:38] LABS: BUN/Creatinine Ratio 20
[2021-12-03 20:46] LABS: Hematocrit 36.6 % (30.3-42.9); Hemoglobin 11.9 gm/dl (10.1-14.3); Mean Corpuscular HGB Conc 33 % (30-34); Mean Corpuscular Volume 94 fl (79-97); Platelet Count 179 K/mm3 (140-440); Red Blood Count 3.89 M/mm3 (3.65-5.03); Red Cell Distribution Width 15.1 % (13.2-15.2)
[2021-12-04 02:27] LABS: Bilirubin,Urine NEG (Negative); Blood,Urine MOD (Negative); Color,Urine Straw (Yellow); Mucus,Urine FEW /HPF; Protein,Urine <15 mg/dL mg/dL (Negative); Urobilinogen,Urine < 2.0 mg/dL (<2.0); WBC,Urine < 1.0 /HPF (0.0-6.0)
[2021-12-04 02:35] LABS: Amphetamine Screen,Urine PRESUMPTIVE NEGATIVE; Benzodiazepines Screen,Urine PRESUMPTIVE NEGATIVE; Cannabinoid Screen,Urine PRESUMPTIVE NEGATIVE; Cocaine Screen,Urine PRESUMPTIVE POSITIVE; Methadone Screen,Urine PRESUMPTIVE NEGATIVE; Opiate Screen,Urine PRESUMPTIVE NEGATIVE
[2021-12-04 07:54] VITALS: BP 169/86
--- NOTE | 2021-12-04 11:35 | Electrocardiograph Report ---
[facility] Test Date: 2021-12-03 Test Time: 18:22:04 Pat Name: AN SEXTON Department: Room: Gender: F [employer] Supervisor: JOLYNN : 1970 Requested By: STEPHANY CRAWFORD Order Number: [id number] Reading MD: Bala Kerr Measurements Intervals [place] Rate: 63 P: 69 SD: 164 QRS: -42 QRSD: 113 T: 53 QT: 481 QTc: 494 Interpretive Statements Sinus rhythm Left ventricular hypertrophy No previous ECG available for comparison Electronically Signed On 12-04-2021 11:35:00 EDT by Bala Kerr
== END 2021-12-04 09:29 ==
LOC: ED 16:17
DX: T50.902A Poisoning by unspecified drugs, medicaments and biological substances, intentional self-harm, initial encounter (principal); J45.909 Unspecified asthma, uncomplicated; Z21 Asymptomatic human immunodeficiency virus [HIV] infection status; Z88.2 Allergy status to sulfonamides; Z79.899 Other long term (current) drug therapy; Y92.89 Other specified places as the place of occurrence of the external cause
CPT/HCPCS: 36415; 71045; 80053; 80307; 81001; 84443; 85025; 93005; 96361; 96374; 96375; 99285; J2405; J3490; J7030; 80320; G0480